=== PATIENT | female | born 1955 | race Caucasian/White ===

== ENCOUNTER → 2025-06-28 | Outpatient (CLI) | payer MEDICARE, BC ==
[~2025-06-28] MED LIST: ASPI81CH PO; FLUO.05TC TOP; HYDR1TAB94 PO; IBUP400 PO
[2025-06-29 10:12] LABS: Stool Occult Bld Immuno 1 Negative (NEGATIVE)
== END ==
LOC: LAB SHORT 07:00 → LAB 07:00
PROVIDERS: Family Medicine
DX: Z12.11 Encounter for screening for malignant neoplasm of colon (principal)
CPT/HCPCS: G0328